=== PATIENT | male | born 1970 | race Hispanic/Latino ===

== ENCOUNTER 2018-10-06 13:15 | Emergency (ER) | payer MEDICARE, OTHER ==
[2018-10-06] MEDS ORDERED: MAG HYDROX/AL HYDROX/SIMETH ES 30 ML SUSP UDCUP ONE (13:31)
[2018-10-06] MEDS ORDERED: LIDOCAINE HCL 2% VISCOUS 15 ML UDCUP ONE (13:31)
[2018-10-06] MEDS ORDERED: FAMOTIDINE 20MG TAB 20 MG TAB ONE (13:32)
== END 2018-10-06 14:49 | disposition home or self-care (01) ==
LOC: EDH 13:15
DX: K29.70 Gastritis, unspecified, without bleeding (principal); K21.9 Gastro-esophageal reflux disease without esophagitis; Z90.49 Acquired absence of other specified parts of digestive tract

== ENCOUNTER 2018-10-24 12:12 | Emergency (ER) | payer OTHER ==
[2018-10-24] MEDS ORDERED: LIDOCAINE HCL 2% VISCOUS 15 ML UDCUP ONE (13:03)
[2018-10-24] MEDS ORDERED: MAG HYDROX/AL HYDROX/SIMETH ES 30 ML SUSP UDCUP ONE (13:04)
[2018-10-24] MEDS ORDERED: FAMOTIDINE 20MG TAB 20 MG TAB ONE (13:04)
== END 2018-10-24 13:43 | disposition home or self-care (01) ==
LOC: EDH 12:12
DX: K29.70 Gastritis, unspecified, without bleeding (principal); K21.9 Gastro-esophageal reflux disease without esophagitis; Z90.49 Acquired absence of other specified parts of digestive tract